=== PATIENT | male | born 1975 | race Caucasian/White ===

== ENCOUNTER 2018-10-01 05:04 | Day surgery (SDC) | payer BC, OTHER ==
[2018-09-29 15:19] VITALS: BMI 25.8
[~2018-10-01 05:04] MED LIST: BUPIVACAINE HCL/PF 0.5% (5 MG/ML) 30 ML VIAL IJ ONE; LIDOCAINE 1%/EPI 1:100000 (50 ML MULTI DOSE VIAL) INF ONE
[2018-10-01] MEDS ORDERED: LIDOCAINE 1%-EPI 1:100,000 30 ML MDV IJ ONE (07:15)
[2018-10-01] MEDS ORDERED: BENZOIN TINCTURE SWABSTICK TP ONE (07:15)
[2018-10-01] MEDS ORDERED: PROPOFOL 20 ML ONE (07:48)
[2018-10-01] MEDS ORDERED: SUCCINYLCHOLINE CHLORIDE 200 MG/10 ML SYRINGE ONE (07:48)
[2018-10-01] MEDS ORDERED: SEVOFLURANE 250 ML BTL ONE (07:49)
[2018-10-01] MEDS ORDERED: MIDAZOLAM HCL 2 MG/2 ML SINGLE DOSE VIAL ONE (07:49)
--- NOTE | 2018-10-01 08:03 | HP ---
Satellite [facility] - Chief Complaint Chief Complaint: R KNEE PAIN History Source: Patient - Past Medical History Allergies/Adverse Reactions: Allergies Allergy/AdvReac Type Severity Reaction Status Date / Time animal dander Allergy Verified 09/29/18 15:25 lactose Allergy Verified 09/29/18 15:24 No Known Drug Allergies Allergy Verified 09/29/18 15:22 walnut trees Allergy Uncoded 09/29/18 15:24 - Current Medications Current Medications: Home Medications Medication Instructions Recorded NK [No Known Home Medication] 09/29/18 Satellite Physical Exam - Physical Examination Vital Signs: Vital Signs Period Temp Pulse Resp BP Sys/Irvin Pulse Ox Last 24 Hr 98.3 F 65 20 120/83 100 Extremities: Other (+ RIGHT KNEE JOINT LINE TENDERNESS) Satellite Impression/Plan - Impression/Plan Impression: INTERNAL DERANGEMENT RIGHT KNEE Operative Procedure: ARTHROSCOPY R KNEE Date to be Performed: 10/01/18
[2018-10-01] MEDS ORDERED: DEXAMETHASONE SOD PHOSPHATE 4 MG/1 ML VIAL ONE (08:18)
[2018-10-01] MEDS ORDERED: LIDOCAINE 1%/EPI 1:100000 (50 ML MULTI DOSE VIAL) INF ONE (08:30)
[2018-10-01] MEDS ORDERED: BUPIVACAINE HCL/PF 0.5% (5 MG/ML) 30 ML VIAL IJ ONE (08:47)
[2018-10-01] MEDS ORDERED: KETOROLAC TROMETHAMINE 30 MG/1 ML VIAL ONE (08:54)
[2018-10-01] MEDS ORDERED: ONDANSETRON 4 MG/2 ML VIAL IVPUSH PRN (09:02)
[2018-10-01] MEDS ORDERED: oxyCODONE HCL 5 MG TABLET PO PRN (09:02)
[2018-10-01] MEDS ORDERED: LACTATED RINGERS SOLUTION 1,000 ML IV SCH (09:15)
[2018-10-01 09:26] VITALS: TEMP 97.7
--- NOTE | 2018-10-01 09:34 | OP ---
Operative Note - Note: Operative Date: 10/01/18 ([facility]) Pre-Operative Diagnosis: right knee internal derangement Operation: right knee arthroscopy with PLM, removal of loose body, debridement chondroplasty trochlea Post-Operative Diagnosis: Same as Pre-op Surgeon: Harvey Keating Anesthesia: General, Local Specimens Removed: shavings Estimated Blood Loss (mls): 5 Operative Report Dictated: Yes
[2018-10-01 09:54] VITALS: PULSE 60
[2018-10-01 11:30] VITALS: BP 116/80
--- NOTE | 2018-10-01 21:52 | OP ---
DATE OF OPERATION: 10/01/2018 PREOPERATIVE DIAGNOSIS: Internal derangement, right knee. POSTOPERATIVE DIAGNOSIS: Internal derangement, right knee. PROCEDURE: Arthroscopy right knee, partial lateral meniscectomy, excision of loose bodies, and chondroplasty of the trochlea. SURGEON: Harvey Keating MD ANESTHESIA: General with LMA. CLOSURES: 4-0 nylon. COMPLICATIONS: None. CONDITION: To recovery room in stable condition. DESCRIPTION OF PROCEDURE: The patient was taken to the operating room on October 01, 2018. General anesthesia with LMA was administered by the anesthesiologist. Right lower extremity was prepped and draped in the usual sterile fashion. The medial and lateral infrapatellar portal sites were infiltrated with 1% Xylocaine with epinephrine. Both portals were then made with 15 blade followed by a blunt trocar. The scope was placed in the lateral infrapatellar portal and up to suprapatellar pouch. The knee was then insufflated with a cocktail of 10 mL 1% Xylocaine, 10 mL 0.5% MAC, and 20 mL of arthroscopic saline through 1 of the scope portals. After allowing the anesthetic to work inside the knee, the procedure was performed. The pouch was visualized to be clean. The medial and lateral gutters were visualized to be clean. However, multiple small, loose bodies were floating throughout the knee. These were debrided using the shaver. The undersurface of the patella was found to be intact. The trochlea was found to have very soft cartilage centrally. Any loose articular cartilage was debrided using the shaver. With valgus stress on the knee, the medial compartment was entered. The medial meniscus was visualized and probed, found to be intact. The medial tibial plateau and femoral condyle were found to be intact; however, the cartilage on the tibia side was very soft in nature, but no articular deficits. At 90 degrees, the ACL was visualized, probed, and found to be intact. There were a few small, little marbles, loose bodies anteriorly that were also debrided using the shaver. With figure-4 position, the lateral compartment was entered. The lateral meniscus was found to have a flap tear of its midportion. This was debrided back to smooth and stable meniscal tissue using meniscal biter and arthroscopic shaver. The lateral femoral condyle also had some softening as did the lateral tibial plateau but no miguel defects in any location. The knee was irrigated with copious amounts of irrigation. The portal was closed using 4-0 nylon. Prior to closure, 20 mL of 0.5% Marcaine was infused into the knee for postoperative analgesia. A sterile pressure dressing was placed over the knee. Patient awakened from anesthesia and transferred to recovery in stable condition. No complications. Estimated blood loss negligible. Catrachita ALVARADO/[id number]
--- NOTE | 2018-10-03 15:46 | PATH ---
Surgical Pathology Report Patient Name: DEIRDRE LAMAS [facility]. Rec. #: [id number] /Age/Gender: 1975 (Age: 43) / M Account: [id number] Location: [facility] Taken: 10/01/2018 Received: 10/01/2018 Reported: 10/03/2018 Physicians: Harvey Keating M.D. Specimen(s) Received RIGHT KNEE SHAVINGS Clinical History Right knee tear Final Diagnosis KNEE SHAVINGS, RIGHT, ARTHROSCOPY, PARTIAL LATERAL MENISCECTOMY, LOOSE BODY REMOVAL, CHONDROPLASTY: FRAGMENTS OF CARTILAGE, DENSE FIBROCONNECTIVE TISSUE, ADIPOSE TISSUE, AND SYNOVIUM. Electronically Signed Gracie Mccray M.D. Gross Description Received in formalin labeled "right knee shavings" are multiple irregular fragments of white-ca to yellow-ca soft tissue measuring 3 x 2 x 1 cm in aggregate. Policy Writer sections are submitted in one cassette. MLAuraZ/10/01/2018 sina/10/01/2018
== END 2018-10-01 11:32 | disposition home or self-care (01) ==
LOC: JASU-SURG 05:04
PROVIDERS: ATTEND Orthopaedic Surgery
PROC: 0SQC4ZZ Repair Right Knee Joint, Percutaneous Endoscopic Approach (ICD-10-PCS; 2018-10-01)
PROC: 0SBC4ZZ Excision of Right Knee Joint, Percutaneous Endoscopic Approach (ICD-10-PCS; principal; 2018-10-01 08:00)
DX: M23.200 Derangement of unspecified lateral meniscus due to old tear or injury, right knee (principal)
CPT/HCPCS: 29881; G0289; 88304-TC; 94760